=== PATIENT | female | born 1965 | race Caucasian/White ===

== ENCOUNTER 2016-05-26 11:24 | Emergency (ER) | payer OTHER ==
[~2016-05-26] VITALS: Ht 160 cm; Wt 72.6 kg
--- NOTE | ~2016-05-26 | EKG ---
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
--- NOTE | ~2016-05-26 | EKG ---
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
[2016-05-26] MEDS ORDERED: MELOXICAM15 MG PO (11:30)
[2016-05-26] MEDS ORDERED: HYDROCHLOROTH12.5 M2 PO (11:30)
[2016-05-26] MEDS ORDERED: ATENOLOL 50MG T50 MG PO (11:30)
[2016-05-26 11:45] LABS: ABSOLUTE NEUTROPHILS 3.3 thou/uL (1.4-8.2); BASOPHILS 1.1 % (0.0-2.0); EOSINOPHILS 0.9 % (0.0-3.0); HEMATOCRIT 42.3 % (37.0-47.0); LYMPHOCYTES 42.8 % (24.0-44.0); MCH 32.4 pg (26.0-34.0); MCHC 35.4 g/dL (28.0-37.0); MCV 91.6 fL (80.0-100.0); MONOCYTES 7.7 % (1.0-8.0); PLATELET COUNT 264 thou/uL (150-400); POLYS 47.5 % (36.0-66.0); RBC 4.62 mil/uL (4.20-5.00); RDW 12.1 % (10.5-14.5); WBC 6.9 thou/uL (4.0-11.0)
[2016-05-26 11:47] LABS: MANUAL DIFF NO
[2016-05-26 11:54] LABS: ANION GAP 7 mmol/L (7-16); BUN 16 mg/dL (7-18); CALCIUM 9.2 mg/dL (8.5-10.1); CHLORIDE 105 mmol/L (98-107); CO2 27 mmol/L (21-32); GLUCOSE 133 mg/dL (70-99); POTASSIUM 3.6 mmol/L (3.5-5.1); SODIUM 139 mmol/L (136-145)
[2016-05-26 12:02] LABS: TROPONIN-I < 0.04 ng/mL (<0.04-0.07)
[2016-05-26] MEDS ORDERED: NORCO 5-325 TA1 EACH PO (13:35)
[2016-05-26] MEDS ORDERED: IBUPROFEN 600600 M1 PO (13:35)
[2016-05-26 14:13] VITALS: BP 136/91
== END 2016-05-26 14:21 | disposition home or self-care (01) ==
LOC: ER 11:24
PROVIDERS: Emergency Medicine
DX: R07.89 Other chest pain (principal); R09.1 Pleurisy; B34.9 Viral infection, unspecified; Z90.710 Acquired absence of both cervix and uterus; I10 Essential (primary) hypertension; F10.99 Alcohol use, unspecified with unspecified alcohol-induced disorder

== ENCOUNTER 2017-12-06 11:25 | Emergency (ER) | payer OTHER ==
[~2017-12-06] VITALS: Ht 160 cm; Wt 72.6 kg
--- NOTE | ~2017-12-06 | EKG ---
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: : 1965 Requested By: Jeane Avila Order Number: [id number] MD: Jason Lara Measurements Intervals [place] Rate: 82 P: 31 [place]: 156 QRS: -19 QRSD: 89 T: 83 QT: 377 QTc: 441 Interpretive Statements Sinus rhythm Left ventricular hypertrophy Compared to ECG 05/26/2016 13:31:07 Sinus bradycardia no longer present Electronically Signed On 12-07-2017 8:04:55 CDT by Jason Lara [email or web address] <ELECTRONICALLY SIGNED> By: Jason Lara MD, [facility] 12/07/17 0804 1129 1129 Jason Lara MD, FACC /EPI
[~2017-12-06 11:25] MED LIST: ATENOLOL 50MG T50 MG PO; HYDROCHLOROTH12.5 M2 PO; IBUPROFEN 600600 M1 PO; MELOXICAM15 MG PO; NORCO 5-325 TA1 EACH PO
[2017-12-06] MEDS ORDERED: BYSTOLIC 5 MG5 M1 PO (11:41)
[2017-12-06 12:01] LABS: HEMATOCRIT 43.1 % (37.0-47.0); HEMOGLOBIN 15.3 gm/dL (12.0-15.0); MCH 32.3 pg (26.0-34.0); MCHC 35.6 g/dL (28.0-37.0); MCV 90.8 fL (80.0-100.0); RBC 4.74 mil/uL (4.20-5.00); RDW 12.5 % (10.5-14.5); WBC 7.5 thou/uL (4.0-11.0)
[2017-12-06 12:08] LABS: ANION GAP 11 mmol/L (7-16); BUN 13 mg/dL (7-18); CALCIUM 9.8 mg/dL (8.5-10.1); CHLORIDE 104 mmol/L (98-107); CO2 26 mmol/L (21-32); CREATININE 0.8 mg/dL (0.6-1.0); GLUCOSE 123 mg/dL (74-106); POTASSIUM 3.8 mmol/L (3.5-5.1)
[2017-12-06 12:09] LABS: SODIUM 141 mmol/L (136-145)
[2017-12-06 12:17] LABS: ALBUMIN 4.3 g/dL (3.4-5.0); SGOT 38 U/L (15-37); SGPT 55 U/L (30-65); TOTAL BILIRUBIN 0.5 mg/dL (<0.1-1.0); TROPONIN-I <0.06 ng/mL (<0.06)
[2017-12-06 13:17] VITALS: BP 168/82
== END 2017-12-06 13:22 | disposition home or self-care (01) ==
LOC: ER 11:25
PROVIDERS: Physician Assistant
DX: I10 Essential (primary) hypertension (principal); Z96.659 Presence of unspecified artificial knee joint